=== PATIENT | female | born 1955 | race Hispanic/Latino ===

== ENCOUNTER 2018-12-19 12:37 | Outpatient (CLI) | payer BC | END 2018-12-19 12:38 | disposition home or self-care (01) | LOC: C.DEXAIC 12:37 | DX: Z13.820 Encounter for screening for osteoporosis (principal) ==

== ENCOUNTER 2018-12-19 12:46 | Outpatient (CLI) | payer BC | END 2018-12-19 12:47 | disposition home or self-care (01) | LOC: C.USIC 12:47 | DX: R10.2 Pelvic and perineal pain (principal) ==